=== PATIENT | male | born 1980 | race Caucasian/White ===

== ENCOUNTER 2016-11-23 04:11 | Emergency (ER) | payer OTHER ==
[2016-11-23 04:33] VITALS: BMI 30.5
--- NOTE | 2016-11-23 04:46 | PDOC ---
History of Present Illness - History of Present Illness Initial Comments: 11/23/16 05:22 The patient is a 36 year old male with no significant past medical history who presents to the ED complaining of 3 days of intermittent chest pain, migrating between the left and right sides, dull and achy in nature, with mild associated nonproductive cough. The patient states he was at home doing nothing in particular at the onset of his symptoms. He denies trauma, injury, or heavy lifting. No shortness of breath, lightheadedness, or palpitations. No nausea, vomiting, or diaphoresis. No fever, chills, or recent illness. <Sophia Luis - Last Filed: 11/23/16 05:22> <Sarah Denis - Last Filed: 11/23/16 06:53> - General Chief Complaint: Chest Pain Stated Complaint: CHEST PAIN Time Seen by Provider: 11/23/16 04:37 Past History <Sophia Luis - Last Filed: 11/23/16 05:22> - Past Medical History Other medical history: denies - Psycho/Social/Smoking Cessation Hx Suicidal Ideation: No Smoking History: Never smoked <Sarah Denis - Last Filed: 11/23/16 06:53> - Past Medical History Allergies/Adverse Reactions: Allergies Allergy/AdvReac Type Severity Reaction Status Date / Time No Known Allergies Allergy Verified 11/23/16 05:24 Home Medications: Ambulatory Orders NK [No Known Home Medication] 11/23/16 Review of Systems - Review of Systems Able to Perform ROS?: Yes Comments:: 11/23/16 05:26 GENERAL/CONSTITUTIONAL: No fever or chills. No weakness. HEAD, EYES, EARS, NOSE AND THROAT: No change in vision. No ear pain or discharge. No sore throat CARDIOVASCULAR: +Chest pain x 3 days. No lightheadedness or shortness of breath. RESPIRATORY: No cough, wheezing, or hemoptysis. GASTROINTESTINAL: No nausea, vomiting, diarrhea or constipation. GENITOURINARY: No dysuria, frequency, or change in urination. MUSCULOSKELETAL: No joint or muscle swelling or pain. No neck or back pain. SKIN: No rash NEUROLOGIC: No headache, vertigo, loss of consciousness, or change in strength/ sensation. ENDOCRINE: No increased thirst. No abnormal weight change. HEMATOLOGIC/LYMPHATIC: No anemia, easy bleeding, or history of blood clots. ALLERGIC/IMMUNOLOGIC: No hives or skin allergy. <Sophia Luis - Last Filed: 11/23/16 05:22> *Physical Exam - Vital Signs Last Vital Signs Temp Pulse Resp BP Pulse Ox 97.9 F 80 18 154/78 100 11/23/16 04:28 11/23/16 04:28 11/23/16 04:28 11/23/16 04:28 11/23/16 04:28 - Physical Exam Comments: 11/23/16 05:26 GENERAL: Awake, alert, and fully oriented, in no acute distress HEAD: No signs of trauma EYES: PERR, pupils appear dilated bilaterally, EOMI, sclera anicteric, conjunctiva clear ENT: Auricles normal inspection, hearing grossly normal, nares patent, oropharynx clear without exudates. Moist mucosa NECK: Normal ROM, supple, no lymphadenopathy, JVD, or masses LUNGS: Breath sounds equal, clear to auscultation bilaterally. No wheezes, and no crackles HEART: Regular rate and rhythm, normal S1 and S2, no murmurs, rubs or gallops ABDOMEN: Soft, nontender, normoactive bowel sounds. No guarding, no rebound. No masses EXTREMITIES: Normal range of motion, no edema. No clubbing or cyanosis. No cords, erythema, or tenderness NEUROLOGICAL: Cranial nerves II through XII grossly intact. Normal speech, normal gait SKIN: Warm, Dry, normal turgor, no rashes or lesions noted. <Sophia Luis - Last Filed: 11/23/16 05:22> - Vital Signs Last Vital Signs Temp Pulse Resp BP Pulse Ox 97.9 F 80 18 154/78 100 11/23/16 04:28 11/23/16 04:28 11/23/16 04:28 11/23/16 04:28 11/23/16 04:28 <Sarah Denis - Last Filed: 11/23/16 06:53> ED Treatment Course - LABORATORY CBC & Chemistry Diagram: 11/23/16 05:35 11/23/16 05:35 <Sarah Denis - Last Filed: 11/23/16 06:53> Medical Decision Making - Medical Decision Making 11/23/16 06:46 Pt comes with atypical CP x 3 days. Bilateral chest pain. No history of heavy lifting, however pt has been staining his deck and he may have strained chest muscles. EKG is NSR; all labs normal. Pt treated with NSAIDS and muscle relaxants in the ER. CXR pending. He will be signed out to the ER doctor. <Sarah Denis - Last Filed: 11/23/16 06:53> *DC/Admit/Observation/Transfer - Attestations Scribe Attestion: 11/23/16 05:27 Documentation prepared by Sophia Luis, acting as medical device sales consultant for Sarah Denis MD. <Sophia Luis - Last Filed: 11/23/16 05:22> - Discharge Dispostion Admit: No <Sarah Denis - Last Filed: 11/23/16 06:53> Diagnosis at time of Disposition: Chest wall pain, Atypical chest pain - Discharge Dispostion Disposition: HOME Condition at time of disposition: Stable - Patient Instructions Printed Discharge Instructions: DI for Atypical Chest Pain, DI for Musculoskeletal Pain
[2016-11-23] MEDS ORDERED: IBUPROFEN 600 MG TABLET (FP) PO ONE ×2 (05:21→05:52)
[2016-11-23] MEDS ORDERED: METHOCARBAMOL 500 MG TABLET PO ONE (05:22)
[2016-11-23 05:44] LABS: BASOPHIL 0.4 % (0-2.0); MCH 28.6 pg (25.7-33.7); MCHC 34.6 g/dl (32.0-35.9); MEAN CELL VOLUME 82.8 fl (80-96); MEAN PLT VOLUME 8.3 fl (7.5-11.1); NEUTROPHILS 71.6 % (42.8-82.8); PLATELET COUNT 231 K/MM3 (134-434); RDW 12.8 % (11.9-15.9); WHITE BLOOD COUNT 8.6 K/mm3 (4.0-10.0)
[2016-11-23] MEDS ORDERED: METHOCARBAMOL 500 MG TABLET ONE (05:52)
[2016-11-23 06:08] LABS: ALBUMIN 4.2 g/dl (3.4-5.0); ANION GAP 11 (8-16); BILIRUBIN,TOTAL 0.6 mg/dL (0.2-1.0); CALCIUM 8.8 mg/dL (8.5-10.1); CO2 27 mmol/L (21-32); COCKROFT - GAULT 141.95; CREATININE 0.9 mg/dL (0.7-1.3); GLUCOSE,RANDOM 93 mg/dL (74-106); SGOT/AST 19 U/L (15-37); SGPT/ALT 35 U/L (12-78); TOT PROT 7.4 g/dl (6.4-8.2)
[2016-11-23 06:11] LABS: ALK PHOS 56 U/L (45-117); TROPONIN I < 0.02 ng/ml (0.00-0.05)
[2016-11-23 07:48] VITALS: BP 148/76; PULSE 78; TEMP 97.8
--- NOTE | 2016-11-25 12:57 | EKG ---
Test Reason : Blood Pressure : / mmHG Vent. Rate : 069 BPM Atrial Rate : 069 BPM P-R Int : 152 ms QRS Dur : 106 ms QT Int : 384 ms P-R-T Axes : 056 024 042 degrees QTc Int : 411 ms NORMAL SINUS RHYTHM WITH SINUS ARRHYTHMIA NORMAL ECG NO PREVIOUS ECGS AVAILABLE Confirmed by JOSE VILLALBA, EMMY ([id number] on 11/25/2016 12:56:39 PM Referred By: Confirmed By:EMMY GARCIA MD
== END 2016-11-23 07:02 | disposition home or self-care (01) ==
LOC: JER 04:11
DX: R07.89 Other chest pain (principal)
CPT/HCPCS: 36415; 71020-TC; 80053; 82550; 82553; 84484; 85025; 93005; 93010; 99282-25